=== PATIENT | female | born 1935 ===

== ENCOUNTER 2024-09-26 06:53 | Inpatient (IN) | payer MEDICARE, SELFPAY ==
--- NOTE | 2024-08-31 13:28 | CM ---
Addendum entered by Ericka Robin RN 09/13/24 14:43:
CM spoke with patient. Patient stated that she had multiple questions regarding her discharge plan. Patient wanted clarification regarding discharge plan. Cm reviewed orthopedic PA note. Plan is for two week of VN and then transition to outpatient
physical therapy.
Patient has further questions but she stated that she could not find the paper where she had written them down. Patient will reach out to this CM with questions. CM will remain available as needed.
Addendum entered by Ericka Robin RN 08/31/24 15:46:
CM spoke with patient's daughter who stated that she lives two hours away, but will be available for support after surgery. Patient's daughter stated that she has had home care in the past. Patient did have a SNF stay at [facility]. Patient's
daughter stated that it was a good experience, but patient is very anxious and had multiple concerns about her stay there.
Patient does lives on first floor of her home. Patient's sister and brother in law would be available for assistance if needed.
Of note, patient has had a protracted recovery after and abdominal surgery. Daughter feels that in addition to patient's baseline anxiety, the illness has made her more anxious.
CM will remain available as needed for patient and daughter.
Addendum entered by Ericka Robin RN 08/31/24 13:52:
Patient called updating this CM that [facility].
Original Note:
CM spoke with patient via phone. Patient confirmed demographics. Patient stated that she does not have ahistory of VN or SNF. Patient has not purchased her DME but plans to do that. Patient stated that she lives with her sister and Brother in law,
but stated that her sister is frail and wont be able to assist with her physical needs. CM advised that patient will need to have reliable supervision three days after surgery. CM provided patient with contact from [facility] to secure a private pay
home health aid to assist with supervision after surgery.
Patient is also aware that she will need to secure an outpatient PT facility. Patient stated that she will make an appointment at [facility] with the anticipation that she will need outpatient PT. CM further explained that PT will
evaluate her the day of and POD#1 and make further recommendation.
CM discussed patient's daughter's ability to support her after her surgery. Patient stated that she is unsure if daughter is able to support her after surgery. Daughter lives two hours away. Patient was unable to tell this CM that where daughter
lived in [place]. Patient was agreeable to allow CM to contact patient's daughter.
Patient stated that she feels very anxious and confused. CM provided emotional support. CM requested that patient call CM to update on her progress with arranging for supervision and support post operatively.
CM left message for patient's daughter to discuss discharge planning.
[2024-09-10 13:53] VITALS: BMI 33.2
[2024-09-10 14:00] LABS: Hematocrit 38.2 % (37.0-47.0); Mean Corpuscular Hgb 32.7 pg (27.0-31.0); Mean Platelet Volume 11.3 fL (7.4-10.4); Platelet Count 160 10^3/uL (130-400); Red Blood Cell Count 3.98 10^6/uL (4.20-5.40); Red Cell Dist. Width 14.1 % (11.5-14.5); White Blood Cell Count 5.3 10^3/uL (4.8-10.8)
[2024-09-10 14:13] LABS: ALT (SGPT) 17 U/L (0-35); AST (SGOT) 17 U/L (14-36); Albumin 4.3 g/dl (3.5-5.0); Alkaline Phosphatase 62 U/L (38-126); Blood Urea Nitrogen 21 mg/dl (7-17); Calcium 10.1 mg/dl (8.4-10.2); Carbon Dioxide 28 mmol/L (22-30); Chloride 104 mmol/L (98-107); Estimated Creatinine Clearance 42 ml/min; Glucose 100 mg/dl (70-99); Potassium 4.4 mmol/L (3.5-5.1); Sodium 141 mmol/L (135-145); Total Bilirubin 0.7 mg/dl (0.2-1.3); Total Protein 7.1 g/dl (6.3-8.2); eGFR > 60.00
[2024-09-10 15:09] LABS: Glycohemoglobin (HgbA1c) 5.4 % (4.0-5.6)
[2024-09-11 08:44] VITALS: BMI 33.2
--- NOTE | 2024-09-14 14:55 | CM ---
CM spoke with patient. Patient had questions regarding her medications. CM referred patient to OS office.
[2024-09-26] VITALS (29 sets, daily range): BP systolic 77–139; BP diastolic 47–79; PULSE 62–65; O2SAT 99; BMI 33.2
[2024-09-26] MEDS: TYLENOL 650 MG PO ×4 (07:34→23:41)
[2024-09-26] MEDS: NORMOSOL-R/PLASMALYTE-A 1000 IV ×2 (07:34→12:37)
[2024-09-26] MEDS: CELEBREX 200 MG PO (07:34)
[2024-09-26] MEDS: VANCOCIN 200 IV ×2 (07:35→17:13)
[2024-09-26] MEDS: FOLVITE PO (12:43)
[2024-09-26] MEDS: RESTASIS 0.05% OPHTHALMIC EMULSION OPHTH (12:43)
[2024-09-26] MEDS: VITAMIN B-12 PO (12:43)
[2024-09-26] MEDS: FLORASTOR PO (12:43)
[2024-09-26] MEDS: PROTONIX PO (12:43)
[2024-09-26] MEDS: ULTRAM 50 MG PO ×3 (12:44→23:41)
[2024-09-26] MEDS: METAMUCIL, KONSYL 1 PACKET PO (12:44)
[2024-09-26] MEDS: ANCEF IV (16:02)
[2024-09-26] MEDS: TYLENOL PO (16:03)
--- NOTE | 2024-09-26 16:09 | W.PN.UPDATE ---
Update Note
Progress Note Update
L hip OA s/p L PAULA w/ Dr Sol 09/26/24
DVT prophylaxis - ASA 81 mg PO BID x4 weeks, b/l venous compression devices
- SCDs advised for outpatient use
HTN - + parameters - monitor BP
Stage I lung cancer s/p left lobectomy >10 years ago
Obstructive sleep apnea, severe and intermittently compliant w/ CPAP
- Monitor O2
- IS
- Resume CPAP HS
- IV Decadron
Ulcerative colitis - reduced dosing of ASA for DVT prophylaxis
- NO OTHER NSAIDS post-op
- Protonix for GI prophylaxis
History of recurrent small bowel obstruction - bowel regimen of Colace/Senna
- Promote early mobility
- Advise adequate hydration. IVF provided chacho-op
MRSA + nasal screen - IV Vanco in addition to IV Ancef
- Nasal mupirocin for 2 weeks post-op
HLD
Osteoporosis
Depression
Anxiety
Obesity, BMI 33.1
Pt will need VN services, home PT, and likely home OT prior to transition to outpatient PT.
--- NOTE | 2024-09-26 17:45 | DOWNTIME ---
There was a [employer] Card Cancellation Clerk Downtime on 09/26/2024 from 1230 to 09/26/2024 at 1550. Downtime documentation of patient's care, including medication administrations, has been reconciled in the electronic record per guidelines. Refer to the
patient's paper chart under the miscellaneous tab to see printed paper medication records and downtime forms.
[2024-09-26] MEDS: LOW STRENGTH ASPIRIN 81 MG PO (19:43)
[2024-09-26] MEDS: COLACE 100 MG PO (19:43)
[2024-09-26] MEDS: DECADRON 4 MG IV (19:44)
[2024-09-26] MEDS: RESTASIS 0.05% OPHTHALMIC EMULSION 1 DROPS OPHTH (19:44)
[2024-09-26] MEDS: SENOKOT 17.2 MG PO (21:19)
[2024-09-26] MEDS: LEXAPRO 5 MG PO (21:19)
[2024-09-26] MEDS: NEURONTIN 300 MG PO (21:19)
[2024-09-26] MEDS: VITAMIN D3 (cholecalciferol) 100 MCG PO (21:19)
[2024-09-26] MEDS: BACTROBAN 2% OINTMENT 1 APPLIC NASAL (21:19)
[2024-09-26] MEDS: ANCEF 5 IV (23:41)
[2024-09-27 03:04] VITALS: BP 123/75
[2024-09-27] MEDS: TYLENOL 650 MG PO ×3 (03:48→11:58)
[2024-09-27] MEDS: ULTRAM 50 MG PO ×2 (03:48→11:58)
[2024-09-27 07:57] VITALS: BP 116/68
[2024-09-27] MEDS: SENOKOT 17.2 MG PO (08:28)
[2024-09-27] MEDS: PROTONIX 40 MG PO (08:36)
[2024-09-27] MEDS: VITAMIN B-12 100 MCG PO (08:36)
[2024-09-27] MEDS: MAG-TAB SR 84 MG PO (08:36)
[2024-09-27] MEDS: FLORASTOR 250 MG PO (08:36)
[2024-09-27] MEDS: RESTASIS 0.05% OPHTHALMIC EMULSION 1 DROPS OPHTH (08:36)
[2024-09-27] MEDS: BACTROBAN 2% OINTMENT 1 APPLIC NASAL (08:36)
[2024-09-27] MEDS: DECADRON 4 MG IV (08:37)
[2024-09-27] MEDS: LOW STRENGTH ASPIRIN 81 MG PO (08:37)
[2024-09-27] MEDS: COLACE 100 MG PO (08:37)
[2024-09-27] MEDS: FOLVITE 1 MG PO (08:37)
[2024-09-27] MEDS: METAMUCIL, KONSYL 1 PACKET PO (08:37)
[2024-09-27] MEDS: CRESTOR 5 MG PO (08:42)
--- NOTE | 2024-09-27 10:12 | CM ---
Addendum entered by Ericka Robin RN 09/27/24 13:30:
[facility] has confirmed SOC for PT on 09/28.
Addendum entered by Ericka Robin RN 09/27/24 12:32:
CM spoke with patient and daughter. Daughter stated that she is very anxious about patient returning home. Daughter is requesting that patient be seen by PT on Tuesday. CM called [facility] and requested that PT be moved up to [facility]. [facility] attempted
contact patient. provided patient's daughter with direct contact number at [facility] to make PT arrangements.
MEHNAZ spoke with Jessica from [facility] and she is also working on obtaining PT for patient.
Addendum entered by Ericka Robin RN 09/27/24 10:29:
Patient has been accepted by [facility].
Original Note:
CM met with patient in room. Patient confirmed that her daughter will provide her transportation home. Patient has hired a DELIVERY DIRECTOR from [facility] for 24 hours starting at 4pm today. Patient knows to call [facility] when she is ready to be discharge.
Patient is agreeable to [facility] for skilled needs including RN, PT, and OT. Referral sent via [facility].
PLAN: Home with [facility].
[2024-09-27 11:38] VITALS: BP 115/66; PULSE 56; O2SAT 98
--- NOTE | 2024-09-27 11:40 | W.PN.ORTHO ---
Today's Communication / Plan
-
Await final PT and OT recs.
D/c later today if remaining clinically stable.
Assessment
.
Distal Motor Intact: Yes
Dressing:
Dime size incisional bleeding noted. Dressing otherwise C/D/I.
Assessment:
L hip OA s/p Tiffanie MITCHELL w/ Dr Sol 09/26/24
DVT prophylaxis - ASA 81 mg PO BID x4 weeks, b/l venous compression devices
- SCDs advised for outpatient use; confirmed patient has these.
HTN - + parameters - BPs overall stable
Stage I lung cancer s/p left lobectomy >10 years ago
Obstructive sleep apnea, severe and intermittently compliant w/ CPAP
- O2 stable on RA
- IS
- Resumed CPAP HS
- IV Decadron -> will switch to PO Decadron x3 days upon d/c
Ulcerative colitis - reduced dosing of ASA for DVT prophylaxis
- NO OTHER NSAIDS post-op
- Protonix for GI prophylaxis
History of recurrent small bowel obstruction - bowel regimen of Colace/Senna
- Promote early mobility
- Advised adequate hydration. IVF provided chacho-op
MRSA + nasal screen - IV Vanco in addition to IV Ancef
- Nasal mupirocin for 2 weeks post-op
HLD
Osteoporosis
Depression
Anxiety
Obesity, BMI 33.1
Pt will need VN services, home PT, and likely home OT prior to transition to outpatient PT. CM aware
Plan
.
Surgery / Date: Tiffanie braden/ Dr Sol 09/26/24
DVT Prophylaxis: Aspirin (81 mg PO BID x4 weeks, DVT units)
Activity:
Out of bed.
PT/OT
Discharge Plan: Home w/ VN
Subjective
.
.:
Patient resting comfortably in her chair.
L hip pain overall tolerable w/ minimal pain meds.
Denies any new significant complaints.
Eager for potential d/c later today.
Vital Signs and Labs
.
Vital Signs and Labs:
Lab Results
09/10/24 13:25
09/10/24 13:25
Temp Pulse Resp BP Pulse Ox
97.8 F 62 16 116/68 97
09/27/24 07:57 09/27/24 07:57 09/27/24 07:57 09/27/24 07:57 09/27/24 07:57
Non-invasive Hgb result: 14.8
Physical Exam
-
HEENT: No pallor, cyanosis, or jaundice. Throat clear.
NECK: Supple. No JVD.
RESPIRATORY: Lungs clear to auscultation.
CVS: S1, S2 normal. RRR.�
ABDOMEN: Soft, non-tender. No distension. Obese.
EXTREMITIES: Mild post-surgical L hip edema. Strength equal, no calf pain with palpation/dorsiflexion. Calves soft.
FILLING LAYER UP: AOx3. No focal deficits. surveyor oil well directional grossly intact
--- NOTE | 2024-09-27 11:52 | W.DS.TRANS ---
DC Summary - Automotive Brake Technician
-
Discharge Instructions:
Discharge Diagnosis/Procedures L hip OA s/p L PAULA w/ Dr Sol 09/26/24
Diet Other diet
Additional Diets Diabetic carb controlled diet x1 week for wound
healing/infection prevention.
Activity With Walker,As tolerated
Additional Activity Adequate hydration, minimize Tramadol, and wear
TEDs stockings to prevent low blood pressure/
dizziness
Driving Restrictions Not until seen by your Dr
Bathing Restrictions OK to Shower
Other Services PT,VN,OT
Instructions:
Stand-Alone Forms: Total Hip/Knee Replacement D/C
Changes to Home Medications: Yes
Discharge Medications:
DC Medications w/original date entered in [employer]
Bifidobacterium infantis 4 mg capsule (Align (B.infantis)) 4 mg PO DAILY Gastrointestinal Issue 09/07/24
alendronate 70 mg tablet 70 mg PO QWEEK on sundays09/07/24
ascorbic acid (vitamin C) 1,000 mg tablet (Vitamin C) 1,000 mg PO HS Supplement 09/07/24
calcium 650 mg-vitamin D3 12.5 mcg-vitamin K 40 mcg chewable tablet (Viactiv) 1 - 2 tab PO DAILY Supplement 09/07/24
cholecalciferol (vitamin D3) 50 mcg (2,000 unit) capsule (Vitamin D3) 100 mcg PO HS Supplement 09/07/24
cyanocobalamin (vitamin B-12) 100 mcg tablet (Vitamin B-12) 100 mcg PO DAILY Supplement 09/07/24
cyclosporine 0.05 % eye drops in a dropperette (Restasis) 1 drp ophthalmic (eye) Q12H Eye Condition 09/07/24
escitalopram oxalate 5 mg tablet 5 mg PO HS Mental Health/Anxiety 09/07/24
folic acid 1 mg tablet 1 mg PO DAILY Supplement 09/07/24
magnesium oxide 800 mg PO DAILY Supplement 09/07/24
methotrexate sodium 2.5 mg tablet 10 mg PO QWEEK on fridays09/07/24
jcxehulb-yppv-ufan 8 mg-folic 400 mcg-K 50 mcg-lutein 300 mcg tablet (Centrum Pleon Women) 1 tab PO HS Supplement 09/07/24
omega 7-ege-fsg-fish oil 1,000 mg (120 mg-180 mg) capsule (Fish Oil) 2 cap PO HS Supplement 09/07/24
Held on 09/27/24. Instructions: Resume on 10/03/24.
psyllium 1 tbsp PO DAILY Gastrointestinal Issue 09/07/24
rosuvastatin 10 mg tablet 10 mg PO MOWEFR High Cholesterol 09/07/24
rosuvastatin 5 mg tablet 5 mg PO SUTUTHSA High Cholesterol 09/07/24
sodium chloride 0.65 % nasal spray aerosol (Saline Nasal) 2 spray intranasal Q2H PRN nasal dryness 09/07/24
dexamethasone 4 mg tablet 4 mg PO BID inflammation #6 tabs 09/11/24
gabapentin 300 mg capsule 300 mg PO HS sleep/pain #10 caps 09/11/24
ondansetron 4 mg disintegrating tablet 4 mg PO Q6H PRN n/v #20 tabs 09/11/24
pantoprazole 40 mg tablet,delayed release (Protonix) 40 mg PO DAILY GI prophylaxis #30 tabs 09/11/24
tramadol 50 mg tablet 50 mg PO Q6H PRN 1 tab moderate pain, 2 if severe #30 tabs 09/11/24
acetaminophen 500 mg tablet (Tylenol Extra Strength) 1,000 mg (2 x 500 mg) PO Q6H pain #60 tabs 09/27/24
aspirin 81 mg chewable tablet 81 mg PO BID #60 tabs 09/27/24
carboxymethylcellulose sodium 1 % eye gel in a dropperette (TheraTears) 1 drp ophthalmic (eye) DAILYPRN PRN dry eye #30 ea 09/27/24
docusate sodium 100 mg capsule 100 mg PO BID #30 caps 09/27/24
losartan 100 mg tablet 100 mg PO HS Blood Pressure #1 tab 09/27/24
mesalamine 1.2 gram tablet,delayed release 4.8 g (4 x 1.2 gram) PO DAILY Gastrointestinal Issue #1 tab 09/27/24
mupirocin 2 % topical ointment 1 applic intranasal BID #1 tube 09/27/24
sennosides 8.6 mg tablet (Bruna-michael) 17.2 mg (2 x 8.6 mg) PO BID #30 tabs 09/27/24
Home Medication Changes
dexamethasone 4 mg tablet 4 mg PO BID inflammation #6 tabs 09/11/24
gabapentin 300 mg capsule 300 mg PO HS sleep/pain #10 caps 09/11/24
ondansetron 4 mg disintegrating tablet 4 mg PO Q6H PRN n/v #20 tabs 09/11/24
pantoprazole 40 mg tablet,delayed release (Protonix) 40 mg PO DAILY GI prophylaxis #30 tabs 09/11/24
tramadol 50 mg tablet 50 mg PO Q6H PRN 1 tab moderate pain, 2 if severe #30 tabs 09/11/24
acetaminophen 500 mg tablet (Tylenol Extra Strength) 1,000 mg (2 x 500 mg) PO Q6H pain #60 tabs 09/27/24
aspirin 81 mg chewable tablet 81 mg PO BID #60 tabs 09/27/24
docusate sodium 100 mg capsule 100 mg PO BID #30 caps 09/27/24
mupirocin 2 % topical ointment 1 applic intranasal BID #1 tube 09/27/24
sennosides 8.6 mg tablet (Bruna-michael) 17.2 mg (2 x 8.6 mg) PO BID #30 tabs 09/27/24
Pending Results: No
[2024-09-27 12:25] VITALS: BP 133/70
--- NOTE | 2024-09-27 14:19 | CM ---
Daughter is aware that patient will be seen by PT on 09/28 through [facility].
[2024-09-27 14:33] VITALS: BP 144/72; PULSE 63; O2SAT 95
[2024-09-27 15:27] VITALS: BP 138/72
== END 2024-09-27 16:14 | disposition home health service (06) | DRG 470 ==
LOC: 2 SOUTH 06:53
PROVIDERS: ADMITTING PHYSICIAN Orthopaedic Surgery; FAMILY PHYSICIAN Internal Medicine
PROC: 0SRB03A Replacement of Left Hip Joint with Ceramic Synthetic Substitute, Uncemented, Open Approach (ICD-10-PCS; 2024-09-26)
DX: M16.12 Unilateral primary osteoarthritis, left hip (principal); Z87.891 Personal history of nicotine dependence; E66.9 Obesity, unspecified; Z68.33 Body mass index [BMI] 33.0-33.9, adult; E78.5 Hyperlipidemia, unspecified; M81.0 Age-related osteoporosis without current pathological fracture; F32.A Depression, unspecified; F41.9 Anxiety disorder, unspecified
CPT/HCPCS: 36415; 73502; 80053; 83036; 85027; 87070; 87147; 93005; 97110; 97116; 97163; 97167; 97530; 97535; C1713; C1776